=== PATIENT | male | born 1970 | race Caucasian/White ===

== ENCOUNTER 2020-05-05 08:56 | Outpatient (CLI) | payer OTHER, SELFPAY ==
--- NOTE | 2020-05-05 | ECG_ITS ---
Measurements Intervals [place] Rate: 68 P: 47 NC: 142 QRS: 25 QRSD: 112 T: 38 QT: 370 QTc: 394 Interpretive Statements SINUS RHYTHM INCOMPLETE RIGHT BUNDLE BRANCH BLOCK BORDERLINE ECG Electronically Signed On 05-05-2020 10:41:43 CDT by Francis Cornell D.O.
--- NOTE | ~2020-05-05 | XR_ITS ---
XR chest 2V DATE: 05/05/2020 10:24 INDICATION: Preoperative evaluation for neck surgery TECHNIQUE: PA and lateral views COMPARISON: None FINDINGS: Levoscoliosis and degenerative change of the thoracic spine. Normal heart size. No hilar or mediastinal enlargement. No pulmonary infiltrate or consolidation, pleural effusion or pulmonary vascular congestion or pneumo thorax. IMPRESSION: No active cardiopulmonary disease Reviewed, dictated and finalized at location A.
[2020-05-05 09:59] LABS: Basophils Absolute Auto 0.1 K/mm3 (0.0-0.1); Basophils Percent Auto 1.4 % (0.2-1.2); Eosinophils Absolute Auto 0.2 K/mm3 (0-0.3); Eosinophils Percent Auto 3.1 % (0-4.4); Hematocrit 45.6 % (42.0-52.0); Hemoglobin 15.9 g/dL (14.0-18.0); Immature Granulocyte Absolute 0.02 K/mm3 (0.00-0.031); Immature Granulocyte Percent A 0.4 % (0-0.5); Lymphocytes Absolute Auto 1.41 K/mm3 (0.9-3.2); Lymphocytes Percent Auto 28.7 % (18.3-44.2); Mean Corpuscular HGB Conc 34.9 g/dl (32-36); Mean Corpuscular Volume 91.8 fl (80-100); Mean Platelet Volume 10.4 fl (7.4-10.4); Monocytes Absolute Auto 0.5 K/mm3 (0.1-0.6); Monocytes Percent Auto 9.8 % (2.6-8.5); Neutrophils Absolute Auto 2.8 K/mm3 (1.3-6.7); Neutrophils Percent Auto 56.6 % (45.5-73.1); Platelet Count Result 196 k/mm3 (150-375); Red Blood Count 4.97 M/mm3 (4.6-6.20); Red Cell Distribution Width 12.4 % (11.5-14.5); White Blood Count 4.9 K/mm3 (4.5-10.0)
[2020-05-05 10:06] LABS: Add Urine Microscopic? YES; Appearance Urine Clear (Clear); Bilirubin Urine Negative (Negative); Blood Urine Negative (Negative); Color Urine Yellow (Yellow); Glucose Urine UA Negative (Negative); Ketones Urine Trace mg/dL (Negative); Leukocyte Esterase Ur Negative LEU/UL (Negative); Nitrate Urine Negative (Negative); Protein Urine Negative (Negative); RBC Urine 0-2 /hpf (0-2); Specific Grav Ur 1.015 (1.001-1.035); Squamous Epithelial Cell Urine Rare /hpf (Few); Urobilinogen Urine Negative mg/dL (<2.0); WBC Urine 0-3 /hpf
[2020-05-05 10:10] LABS: Hemoglobin A1C 5.5 % (<5.7); INR 0.9
[2020-05-05 10:12] LABS: Partial Thromboplastin Time 27.3 SECONDS (22.3-36.8)
[2020-05-05 10:13] LABS: Alanine Aminotransferase 77 U/L (4-50); Albumin Level 4.6 g/dL (3.5-5.1); Alkaline Phosphatase 68 U/L (38-126); Aspartate Amino Transferase 56 U/L (17-59); Bilirubin,Total 0.5 mg/dL (0.2-1.3); Blood Urea Nitrogen 13 mg/dL (9-20); Calcium 9.4 mg/dL (8.4-10.2); Carbon Dioxide 24 mmol/L (22-30); Chloride 103 mmol/L (98-107); Estimated Glomerular Filt Rate > 60; Glucose 102 mg/dL (75-110); Potassium 4.5 mmol/L (3.4-5.0); Sodium 135 mmol/L (137-145)
[2020-05-05 10:20] LABS: Prealbumin 41.5 mg/dL (17.6-36.0)
[2020-05-05 10:49] LABS: Vitamin D 25 Hydroxy 31.1 ng/mL
[2020-05-05 12:26] LABS: HAV RESULT Negative (Negative); Hepatitis B Core IgM Result Negative (Negative); Hepatitis B Surface Antigen Negative (Negative)
[2020-05-05 12:34] LABS: HIV 1/2 Ab P24 Ag Result Negative (Negative); Hepatitis C Virus Antibody Negative (Negative)
[2020-05-09 11:39] LABS: Testosterone Total 689 ng/dL (250-1100)
== END 2020-05-05 08:57 | disposition home or self-care (01) ==
PROVIDERS: PCP Internal Medicine
DX: Z01.818 Encounter for other preprocedural examination (principal); M47.812 Spondylosis without myelopathy or radiculopathy, cervical region
CPT/HCPCS: 36415; 71046; 80053; 80074; 81001; 82306; 83036; 84134; 84403; 85025; 85610; 85730; 86703; 87081; 93005; G0432

== ENCOUNTER 2022-09-04 02:01 | Day surgery (SDC) | payer OTHER, SELFPAY ==
[2022-08-19 13:33] VITALS: BMI 37.5
--- NOTE | 2022-08-19 14:19 | PC.NURSE ---
PT INSTRUCTED ON PRE-OP PHONE CALL TO NOT TAKE MAGNESIUM CITRATE PER BOWEL PREP ORDERS DUE TO RECALL, PT STATES UNDERSTANDING.
--- NOTE | 2022-09-03 17:13 | PM.HPGS ---
History of Present Illness History of Present Illness Consent: Risks, benefits, and alternatives have been discussed and questions answered. Patient agrees to proceed with procedure. Chief complaint: neoplasm screening Narrative: Jelani Saunders is a 51 year old male referred for colon cancer screening. Review of Systems Review of Systems: All systems reviewed & are unremarkable except as noted in HPI and below PMFSH Past Medical History Medical History BCC (basal cell carcinoma of skin) face High cholesterol Subcutaneous mass R leg Surgical History Surgical History H/O excision of mass exc of back abscess 01/09/22 H/O removal of cyst S/P cervical spinal fusion S/P tonsillectomy Family History Family History Father Hypertension Sibling Hypertension Cervical cancer Mother Dementia Unknown Diabetes mellitus Heart disease Hypertension Social History Social History Smoking status: Current some day smoker Tobacco type: cigars Smokeless tobacco user: chewing tobacco Second hand tobacco smoke exposure: No Smoking end date: 12/01/05 Additional smoking assessment comments: OCCASIONAL CIGAR Alcohol intake: current Drinks per week: 10 Alcohol use details: BEER, HARD LIQUOR Substance use: never Substance use type: does not use Living arrangements: with family Additional occupation/education comments: officer captain Spiritual care concerns: No Meds Home Medications and Allergies Home Medications Medication Instructions Recorded Confirmed Type fluticasone propionate 50 2 spray intranasal DAILY 02/22/20 08/19/22 History mcg/actuation nasal spray,suspension (Flonase Allergy Relief) multivitamin (Multiple Vitamins 1 tablet PO DAILY 02/22/20 08/19/22 History tablet) cetirizine 10 mg tablet (Zyrtec) 10 mg PO DAILY 06/07/20 08/19/22 History testosterone 50 mg/5 gram (1 %) 2 packet transdermal DAILY #300 09/12/20 08/19/22 Rx transdermal gel (Testim) grams omeprazole 20 mg capsule,delayed 20 mg PO DAILY PRN reflux #90 caps 01/26/21 08/19/22 Rx release omega 0-gpp-zbj-fish oil 100 1 cap PO DAILY 05/27/22 08/19/22 History mg-160 mg-1,000 mg capsule (Fish Oil) losartan 100 1 tablet PO DAILY #90 tabs 07/14/22 08/19/22 Rx mg-hydrochlorothiazide 12.5 mg tablet tadalafil 20 mg tablet (Cialis) 20 mg PO DAILY PRN sexual activity 07/15/22 08/19/22 Rx #10 tabs rosuvastatin 10 mg tablet 10 mg PO DAILY #90 tabs 07/16/22 08/19/22 Rx Allergies Allergy/AdvReac Type Severity Reaction Status Date / Time codeine Allergy Unknown Headache Verified 09/04/22 06:43 Exam Const: General: alert Orientation/consciousness: patient oriented x3 Resp: Auscultation: clear to auscultation bilaterally Cardio: Rhythm: regular rhythm GI: GI Palp: Yes Soft to palpation and No Tenderness to palpation present (GI) Neuro: General: patient oriented x3 Assessment and Plan Assessment and plan (1) Colon cancer screening: Code(s): Z12.11 - Encounter for screening for malignant neoplasm of colon Status: Acute Assessment and Plan: Colonoscopy with possible biopsy or polypectomy or cautery or injection of substances.
[2022-09-04 06:44] VITALS: BP 133/90; PULSE 77; RESP 20; TEMP 36.7; O2SAT 96
[2022-09-04] MEDS: LACTATED RINGERS 1,000 ML 150 ML IV CONT (06:53)
--- NOTE | 2022-09-04 07:25 | WPDANESEPPF ---
Anes - Initial Pre Proc Eval Procedure: Operation Date: 09/04/22 08:00 Proposed Procedures p Screening Colonoscopy - Sukhwinder Tobin MD Date/Time: 09/04/22 07:25 Surgeon: Sukhwinder Tobin MD Pre Op Diagnosis: neoplasm screening Patient Data Age: 51 Gender: M Height: 1.91 m Weight: 134.8 kg Last Vital Signs Temp 36.7 C 09/04/22 06:44 Pulse 77 09/04/22 06:44 Resp 20 09/04/22 06:44 BP 133/90 09/04/22 06:44 Pulse Ox 96 09/04/22 06:44 O2 Del Method Room Air 09/04/22 06:44 Allergies Allergy/AdvReac Type Severity Reaction Status Date / Time codeine Allergy Unknown Headache Verified 09/04/22 06:43 Home Medications Medication Instructions Recorded Confirmed Type fluticasone propionate 50 2 spray intranasal DAILY 02/22/20 08/19/22 History mcg/actuation nasal spray,suspension (Flonase Allergy Relief) multivitamin (Multiple Vitamins 1 tablet PO DAILY 02/22/20 08/19/22 History tablet) cetirizine 10 mg tablet (Zyrtec) 10 mg PO DAILY 06/07/20 08/19/22 History testosterone 50 mg/5 gram (1 %) 2 packet transdermal DAILY #300 09/12/20 08/19/22 Rx transdermal gel (Testim) grams omeprazole 20 mg capsule,delayed 20 mg PO DAILY PRN reflux #90 caps 01/26/21 08/19/22 Rx release omega 8-wza-cvd-fish oil 100 1 cap PO DAILY 05/27/22 08/19/22 History mg-160 mg-1,000 mg capsule (Fish Oil) losartan 100 1 tablet PO DAILY #90 tabs 07/14/22 08/19/22 Rx mg-hydrochlorothiazide 12.5 mg tablet tadalafil 20 mg tablet (Cialis) 20 mg PO DAILY PRN sexual activity 07/15/22 08/19/22 Rx #10 tabs rosuvastatin 10 mg tablet 10 mg PO DAILY #90 tabs 07/16/22 08/19/22 Rx Patient hx anesthesia problems: none Family hx anesthesia problems: none Results Review: All pre-operative results and documents have been reviewed as part of the pre-operative evaluation. REPLACED BY [facility] Past Medical History Medical History (Updated 09/04/22 @ 07:26 by Lawrence Meyer DO) BCC (basal cell carcinoma of skin) face Essential (primary) hypertension GERD (gastroesophageal reflux disease) High cholesterol SOUMYA (obstructive sleep apnea) Subcutaneous mass R leg Surgical History Surgical History (Updated 09/04/22 @ 07:26 by Lawrence Meyer DO) H/O excision of mass exc of back abscess 01/09/22 H/O removal of cyst Hx of fusion of cervical spine C4-7 S/P cervical spinal fusion S/P tonsillectomy Family History Family History Father Hypertension Sibling Hypertension Cervical cancer Mother Dementia Unknown Diabetes mellitus Heart disease Hypertension Social History Social History Smoking status: Current some day smoker Tobacco type: cigars Smokeless tobacco user: chewing tobacco Second hand tobacco smoke exposure: No Smoking end date: 12/01/05 Additional smoking assessment comments: OCCASIONAL CIGAR Alcohol intake: current Drinks per week: 10 Alcohol use details: BEER, HARD LIQUOR Substance use: never Substance use type: does not use Living arrangements: with family Additional occupation/education comments: recreation officer Spiritual care concerns: No Anes - Eval Final PreProcedure Day of Procedure 09/04/22 07:25 Patient weight: obese Heart: regular rate and rhythm Lungs: clear to auscultation Airway: Mallampati scale class II Neurological: alert and oriented Last oral intake: >/= 8 hours ASA classification: III Emergent: no Anesthetic plan: proceed Anesthesia type and monitoring: general GIVS and standard monitoring Results Review: All pre-operative results and documents have been reviewed as part of the pre-operative evaluation. Informed Consent: The patient's anesthetic plan and its attendant risks and benefits were discussed with the patient/family/POA. Questions were solicited and answers provided to the s
[2022-09-04] MEDS: SIMETHICONE ORAL SUSPENSION 20 MG/0.3 ML 30 ML BOTTLE 0.6 ML IRRIGATION (08:05)
[2022-09-04 08:16] VITALS: BP 144/76; PULSE 77; RESP 23; O2SAT 98
[2022-09-04 08:26] VITALS: BP 155/110; PULSE 77; RESP 24; O2SAT 100
[2022-09-04 08:46] VITALS: BP 152/108; PULSE 75; RESP 18; O2SAT 100
--- NOTE | 2022-09-04 08:48 | SUR.PHASEII ---
Dr. Meyer notified of pt blood pressure readings. Orders for pt to resume home blood pressure medication upon discharge. Pt states understanding.
== END 2022-09-04 08:48 | disposition home or self-care (01) ==
PROVIDERS: PCP Internal Medicine; Visit Provider Internal Medicine Gastroenterology
PROC: 0DJD8ZZ Inspection of Lower Intestinal Tract, Via Natural or Artificial Opening Endoscopic (ICD-10-PCS; CPT 45378; principal; 2022-09-04 08:00)
DX: Z12.11 Encounter for screening for malignant neoplasm of colon (principal); I10 Essential (primary) hypertension; K21.9 Gastro-esophageal reflux disease without esophagitis; E78.00 Pure hypercholesterolemia, unspecified; G47.33 Obstructive sleep apnea (adult) (pediatric); Z92.850 Personal history of Chimeric Antigen Receptor T-cell therapy; Z85.828 Personal history of other malignant neoplasm of skin; Z98.1 Arthrodesis status; F17.210 Nicotine dependence, cigarettes, uncomplicated; E66.9 Obesity, unspecified; Z68.37 Body mass index [BMI] 37.0-37.9, adult
CPT/HCPCS: 45378; J2704; J7120

== ENCOUNTER 2023-02-19 12:19 | Outpatient (CLI) | payer OTHER, SELFPAY ==
[2023-02-19 13:18] LABS: Influenza A QL RT-PCR Negative (Negative); Influenza B QL RT-PCR Negative (Negative); RSV RNA, RT-PCR Negative (Negative); SARS-CoV-2 RNA PCR Positive
== END 2023-02-19 12:20 | disposition home or self-care (01) ==
LOC: ANHLAB 12:20
PROVIDERS: PCP Internal Medicine; Visit Provider Internal Medicine
DX: U07.1 COVID-19 (principal)
CPT/HCPCS: 87637

== ENCOUNTER 2024-07-20 11:05 | Outpatient (CLI) | payer OTHER, SELFPAY ==
--- NOTE | ~2024-07-20 | XR_ITS ---
XR knee LT min 4V Ordering provider: Dipak Schrader, [place] History: . No recent injury medial side pain for 10 days . Comparison: None. FINDINGS: BONES: No acute fracture or dislocation. JOINT SPACES: Normal. Marginal osteophytes in the patella. SOFT TISSUES: Normal. IMPRESSION: No acute osseous abnormality left knee. Osteoarthritic changes of the patellofemoral joint. Reviewed, dictated and finalized at location A.
== END 2024-07-20 11:06 ==
LOC: MICIMG 11:07
PROVIDERS: PCP Internal Medicine; Visit Provider Chiropractor Rehabilitation
DX: M17.12 Unilateral primary osteoarthritis, left knee (principal)
CPT/HCPCS: 73564

== ENCOUNTER 2024-09-03 10:03 | Outpatient (CLI) | payer OTHER, SELFPAY ==
--- NOTE | ~2024-09-03 | MR_ITS ---
MRI of the left knee Clinical history: Pain Technique: Coronal proton density and proton density-weighted images, sagittal proton-density and T2 fat-sat images, and axial proton-density fat-saturated images were acquired. Findings: Anterior and posterior cruciate ligaments are intact. Medial collateral ligament and the la teral collateral ligament complex are intact. Popliteus tendon is intact. There is complex tearing of the body segment of the medial meniscus, which is diminutive. Horizontal tear probably extends into the posterior horn. Lateral meniscus intact. There is extensive grade IV chondromalacia of the lateral patellar facet extending to the apex. Remai jim articular cartilage is well preserved. Small tricompartmental osteophytes are present. Extensor mechanism is intact. Small joint effusion present. There is probable elongated ganglion cyst posterior to the PCL, measuring 3.5 cm in craniocaudal extent. Impression: Complex tearing of the body segment of the medial meniscus, with horizontal tear extending to the pos terior horn. Degenerative change, as above, with extensive grade IV chondromalacia patella. Probable ganglion cyst posterior to the PCL, as detailed above. Small joint effusion. Reviewed, dictated and finalized at location . Impression: Complex tearing of the body segment of the medial meniscus, with horizontal tea r extending to the posterior horn. Degenerative change, as above, with extensive grade IV chondromalacia patella. Probable ganglion cyst posterior to the PCL, as detailed above. Small joint eff usion.
== END 2024-09-03 10:04 | disposition home or self-care (01) ==
LOC: GOSHIMG 10:04
PROVIDERS: PCP Chiropractor Rehabilitation; Visit Provider Chiropractor Rehabilitation
DX: S83.232A Complex tear of medial meniscus, current injury, left knee, initial encounter (principal); X58.XXXA Exposure to other specified factors, initial encounter
CPT/HCPCS: 73721